=== PATIENT | female | born 1980 ===

== ENCOUNTER 2018-05-10 18:08 | Emergency (ER) | payer SELFPAY ==
[~2018-05-10] VITALS: Ht 170.2 cm; Wt 54.4 kg
--- NOTE | 2018-05-10 19:11 | NUR ---
sbar report to jennifer ovalle
--- NOTE | 2018-05-10 19:13 | NUR ---
verbal aci per dr [email or web address].pt ambulatory with a steady gait
[2018-05-10 19:14] VITALS: BP 133/77
== END 2018-05-10 19:14 | disposition home or self-care (01) ==
LOC: ER 18:12
DX: F41.9 Anxiety disorder, unspecified (principal); J45.909 Unspecified asthma, uncomplicated
CPT/HCPCS: A4663